=== PATIENT | male | born 1975 | race Caucasian/White ===

== ENCOUNTER → 2016-09-23 | Outpatient (CLI) | payer OTHER | LOC: BMCIMAGING 12:58 | PROVIDERS: ATTEND Family Medicine | DX: M25.511 Pain in right shoulder (principal) ==

== ENCOUNTER → 2017-09-24 | Outpatient (CLI) | payer OTHER | LOC: BMCIMAGING 14:41 | PROVIDERS: ATTEND Family Medicine | DX: M54.5 Low back pain (principal); Z98.1 Arthrodesis status ==

== ENCOUNTER 2018-10-10 16:41 | Emergency (ER) | payer OTHER ==
[2018-10-10] MEDS ORDERED: MECLIZINE HCL 25 MG TAB PO ONE (17:18)
--- NOTE | 2018-10-10 17:18 | EDPHY ---
H & P Stated Complaint: Dizziness/blurry vision Time Seen by Provider: 10/10/18 16:56 HPI/ROS: CHIEF COMPLAINT: Dizziness, unsteady gait HISTORY OF PRESENT ILLNESS: 43-year-old male presents with dizziness and unsteady gait. Onset of dizziness 5 days ago. Dizziness is described as lightheadedness, increasing with standing positioning and associated with blurry vision. Following day, he developed moderate head pressure, especially on the left. Onset of a room spinning sensation and feeling off balance with walking yesterday. He saw his primary care physician yesterday, who prescribed a medication for a migraine headache. He also saw an management psychologist yesterday and his eye exam was reportedly normal. Symptoms increased today, especially room spinning sensation and difficulty ambulating. No recent head injury. No prior similar symptoms. REVIEW OF SYSTEMS: complete 10 point ROS reviewed and is negative except for the noted elements in the HPI - Personal History Current Tetanus/Diphtheria Vaccine: Yes - Medical/Surgical History Hx Asthma: No Hx Chronic Respiratory Disease: No Hx Diabetes: No Hx Cardiac Disease: No Hx Renal Disease: No Hx Cirrhosis: No Hx Alcoholism: No Other PMH: Denies - Social History Smoking Status: Never smoked Alcohol Use: Sober Drug Use: None Additional Social History: - Physical Exam Exam: General Appearance: Alert, pleasant Eyes: Pupils equal and round, no conjunctival pallor or injection, horizontal nystagmus, fast component to the right ENT, Mouth: Mucous membranes moist Neck: Normal inspection Respiratory: Lungs are clear to auscultation Cardiovascular: Regular rate and rhythm Gastrointestinal: Abdomen is soft and nontender Neurological: A&O, motor 5/5, sensory intact to light touch, gait is slightly unsteady and he lists to the right, [id number] testing is normal Skin: Warm and dry Extremities: Normal inspection Psychiatric: Mood and affect normal Constitutional: Initial Vital Signs Temperature (C) 36.8 C 10/10/18 16:43 Heart Rate 73 10/10/18 16:43 Respiratory Rate 18 10/10/18 16:43 Blood Pressure 137/104 H 10/10/18 16:43 O2 Sat (%) 97 10/10/18 16:43 O2 Delivery Mode Room Air Allergies/Adverse Reactions: No Known Allergies Allergy (Unverified 10/10/18 16:47) Home Medications: Medication Instructions Recorded Meclizine HCl [Meclizine HCl 25 mg 25 mg PO TID PRN #15 tab 10/10/18 (RX,OTC)] Medical Decision Making - Diagnostics EKG Interpretation: EKG interpreted by me reveals normal sinus rhythm, rate 65, no ST or T segment changes. Interpretation: Normal EKG Imaging Results: Brain MRI 10/10/18 17:14 Impression: Nonspecific white matter disease in a 43-year-old male. This could potentially represent evidence of a multifocal demyelinating process such as multiple sclerosis or cerebral infection such as HIV. Is this patient immunocompromised? Results were discussed with Dr. Ayala at 6:16 PM. Imaging: Discussed imaging studies w/ call or contact centre operator Radiologist ED Course/Re-evaluation: This patient presents with vertigo and unsteady gait. Stat EKG reveals no evidence of ischemia or dysrhythmia. Orthostatics vital signs consistent with dehydration. IV normal saline 1 L given. Meclizine 25 mg orally given. MRI of the brain ordered to rule out serious intracranial pathology. MRI read by Dr. Long most c/w multiple sclerosis and results were discussed with the patient. Option for admission vs d/c home discussed; pt feels stable and improved after meclizine. Would like to go home and pursue further outpt eval. Neurology was consulted. d/w Dr. Velasquez, will f/u in office. Final MRI report reviewed on 10/11/18: pt is not immunocompromised and I do not suspect intracranial infection. Differential Diagnosis: Differential diagnosis includes does not limited to brain tumor, MS, hypoglycemia, peripheral vertigo, Meniere's disease. - Data Points Laboratory Results: Laboratory Results 10/10/18 17:18 10/10/18 17:18 Medications Given: Discontinued Medications Sodium Chloride (Ns) 1,000 mls @ 0 mls/hr IV ONCE ONE; Wide Open PRN Reason: Protocol Stop: 10/10/18 17:47 Last Admin: 10/10/18 18:15 Dose: 1,000 mls Meclizine HCl (Meclizine Hcl) 25 mg PO EDNOW ONE Stop: 10/10/18 17:19 Last Admin: 10/10/18 17:25 Dose: 25 mg Departure - Departure Disposition: Home, Routine, Self-Care Clinical Impression: Vertigo Condition: Good Instructions: Meclizine (By mouth), Vertigo (ED) Additional Instructions: Your MRI shows likely multiple sclerosis. I talked with the neurologist construction area manager , Dr. Velasquez, who would like to see you in his office. Please call the office in the morning. Referrals: Aileen Forrest MD [Primary Care Provider] - As per Instructions Uriel Velasquez MD [Medical Doctor] - As per Instructions (Call to make an appointment.) Prescriptions: Meclizine HCl [Meclizine HCl 25 mg (RX,OTC)] 25 mg PO TID PRN #15 tab PRN Reason: Dizziness
--- NOTE | 2018-10-10 17:28 | CPEKG ---
Test Reason : OPEN Blood Pressure : / mmHG Vent. Rate : 065 BPM Atrial Rate : 066 BPM P-R Int : 149 ms QRS Dur : 092 ms QT Int : 401 ms P-R-T Axes : 042 047 043 degrees QTc Int : 417 ms Sinus rhythm Confirmed by Odalys Ayala ([id number]) on 10/10/2018 5:27:11 PM Referred By: Odalys Ayala Confirmed By:Odalys Ayala
[2018-10-10 17:29] LABS: PLATELET COUNT 229 10^3/uL (150-400)
[2018-10-10] MEDS ORDERED: NS 1,000 ML IV ONE (17:46)
[2018-10-10 19:01] VITALS: BP 144/78
== END 2018-10-10 19:13 | disposition home or self-care (01) ==
DX: R42 Dizziness and giddiness (principal); R26.9 Unspecified abnormalities of gait and mobility; E86.9 Volume depletion, unspecified
CPT/HCPCS: 70551-PN

== ENCOUNTER → 2018-10-30 | Outpatient (CLI) | payer OTHER ==
[~2018-10-30] MED LIST: GADOBUTROL 10 ML VIAL IVP ONE
== END ==
LOC: FIMAGING 07:36
PROVIDERS: ATTEND Psychiatry & Neurology Neurology
DX: M48.02 Spinal stenosis, cervical region (principal); M50.322 Other cervical disc degeneration at C5-C6 level
CPT/HCPCS: A9585

== ENCOUNTER → 2019-01-09 | Outpatient (CLI) | payer OTHER | LOC: FIMAGING 06:46 ==